=== PATIENT | female | born 1985 | race Caucasian/White ===

== ENCOUNTER 2022-08-13 07:50 | Outpatient (CLI) | payer BC | END 2022-08-13 07:51 | disposition home or self-care (01) | LOC: ULT 07:50 | PROVIDERS: ATTEND Registered Nurse Community Health | DX: E01.0 Iodine-deficiency related diffuse (endemic) goiter (principal) | CPT/HCPCS: 76536 ==

== ENCOUNTER 2023-08-25 08:12 | Inpatient (IN) | payer BC, OTHER ==
[2023-08-25] MEDS ORDERED: Iopamidol 370 76% 100 ML VIAL ONE (08:29)
[2023-08-25 08:52] LABS: #Eosinphils 0.1 thou/uL (0.0-0.7); #Monocytes 0.4 thou/uL (0.11-0.59); #Neutrophils 3.5 thou/uL (1.40-6.50); %Basophils 0.5 % (0.0-1.0); %Lymphocytes 31.3 % (21.0-51.0); %Monocytes 7.2 % (0.0-10.0); %Neutrophils 58.8 % (42.0-75.0); Hemoglobin 14.3 g/dL (12.0-16.0); Mean Corpuscular HGB CONC 32.5 g/dL (32.0-36.0); Mean Corpuscular Hemoglobin 28.3 pg (27.0-31.0); Mean Platelet Volume 9.2 fL (7.4-10.4); Platelet Count 311 10x3/uL (130-400); RBC Distribution Width 13.3 % (11.5-14.5); Red Blood Cell (RBC) Count 5.06 mill/uL (4.20-5.40)
[2023-08-25 08:57] LABS: Pregnancy Test - Urine (BHCG) Negative (Negative); Pregu Control Background? CLEAR/WHITE (CLR/WHITE); Pregu Control Bar Appear? YES (CONTROL BAR); Specific Gravity 1.028 (1.002-1.036)
[2023-08-25 09:07] LABS: Bacteria/HPF None Seen HPF (None Seen); Bilirubin Negative (Negative); Blood, Urine Negative (Negative); CAUTI Indications for Culture Pelvic or flank pain; Clarity Clear (Clear); Glucose, Urine (Dipstick) Normal (Negative); Ketone, Urine Negative (Negative); Leukocyte 25 Leu/uL (Negative); Nitrite Negative (Negative); Protein, Urine (Dipstick) 20 mg/dL (Neg-Trace); RBC/HPF 0-3 HPF (0-3); Specific Gravity, Urine 1.028 (1.002-1.036); Urobilinogen Normal mg/dL (Less than 2)
[2023-08-25 09:08] LABS: Urine Culture Reflex No No
[2023-08-25 09:17] LABS: ALT (SGPT) 10 U/L (8-55); AST (SGOT) 13 U/L (5-34); Albumin 4.3 g/dL (3.5-5.0); Alkaline Phosphatase 62 U/L (40-110); Anion Gap 13 mmol/L (10-20); BUN (Urea Nitrogen) 9 mg/dL (7.0-18.7); Bilirubin, Total 0.4 mg/dL (0.2-1.2); Calc. Creatinine Clearance 0 mL/min (70-130); Calcium 9.3 mg/dL (7.8-10.44); Carbon Dioxide 22 mmol/L (22-29); Chloride 107 mmol/L (98-107); Estimated GFR 72; Globulin 2.8 g/dL (2.4-3.5); Glucose 88 mg/dL (70-105); Lipase 57 U/L (8-78); Potassium 3.9 mmol/L (3.5-5.1); Protein, Total 7.1 g/dL (6.0-8.3); Sodium 138 mmol/L (136-145)
[2023-08-25] MEDS ORDERED: Ketorolac Tromethamine 30 MG (1 mL) VIAL ONE (09:36)
[2023-08-25] MEDS ORDERED: Ondansetron PF 4 MG/2 ML Vial ONE (09:36)
[2023-08-25] MEDS ORDERED: Piperacillin/Tazobactam 4.5 GM VIAL ONE (10:27)
[2023-08-25] MEDS ORDERED: Morphine 4 MG/ML VIAL ONE ×2 (10:27→12:52)
[2023-08-25] MEDS ORDERED: Sodium Chloride 0.9% 100 ML ONE (10:27)
[2023-08-25] MEDS ORDERED: Calcium Carbonate 500 MG ChewTAB PO PRN (13:06)
[2023-08-25] MEDS ORDERED: Senokot S 8.6-50 MG TAB PO PRN (13:06)
[2023-08-25] MEDS ORDERED: Bisacodyl 5 MG TAB PO PRN (13:06)
[2023-08-25] MEDS ORDERED: Ondansetron PF 4 MG/2 ML Vial IVP PRN (13:06)
[2023-08-25] MEDS ORDERED: Zolpidem Tartrate 5 MG TAB PO PRN (13:06)
[2023-08-25] MEDS ORDERED: Morphine 2 MG/ML VIAL SLOW IVP PRN (13:09)
[2023-08-25] MEDS ORDERED: Morphine 4 MG/ML VIAL SLOW IVP PRN (13:09)
[2023-08-25] MEDS: Sodium Chloride 0.9% 1,000 ML IV SCH ×2 (15:15→21:56)
[2023-08-25 15:46] VITALS: BMI 28.0
[2023-08-25] MEDS ORDERED: Hyoscyamine SL 0.125 MG TAB SL SCH ×2 (16:45→17:15)
[2023-08-25] MEDS ORDERED: Hyoscyamine SL 0.125 MG TAB SL PRN (17:02)
[2023-08-25] MEDS: Famotidine/PF 20 mg/2ml Vial SLOW IVP SCH (21:55)
[2023-08-26 04:57] LABS: #Eosinphils 0.2 thou/uL (0.0-0.7); #Monocytes 0.5 thou/uL (0.11-0.59); #Neutrophils 3.4 thou/uL (1.40-6.50); %Basophils 0.4 % (0.0-1.0); %Eosinophils 2.7 % (0.0-10.0); %Lymphocytes 38.7 % (21.0-51.0); %Neutrophils 50.9 % (42.0-75.0); Hematocrit 37.1 % (36.0-47.0); Hemoglobin 11.9 g/dL (12.0-16.0); Mean Corpuscular HGB CONC 32.1 g/dL (32.0-36.0); Mean Corpuscular Hemoglobin 28.1 pg (27.0-31.0); Mean Corpuscular Volume 87.7 fl (78.0-98.0); Mean Platelet Volume 9.7 fL (7.4-10.4); Platelet Count 265 10x3/uL (130-400); RBC Distribution Width 13.3 % (11.5-14.5); Red Blood Cell (RBC) Count 4.23 mill/uL (4.20-5.40); White Blood Cell (WBC) Count 6.7 10x3/uL (4.8-10.8)
[2023-08-26 05:31] LABS: ALT (SGPT) 8 U/L (8-55); AST (SGOT) 10 U/L (5-34); Albumin 3.4 g/dL (3.5-5.0); Alkaline Phosphatase 47 U/L (40-110); Anion Gap 9 mmol/L (10-20); BUN (Urea Nitrogen) 9 mg/dL (7.0-18.7); Bilirubin, Total 0.3 mg/dL (0.2-1.2); Calc. Creatinine Clearance 107 mL/min (70-130); Calcium 8.3 mg/dL (7.8-10.44); Carbon Dioxide 24 mmol/L (22-29); Chloride 108 mmol/L (98-107); Estimated GFR 77; Globulin 2.1 g/dL (2.4-3.5); Glucose 94 mg/dL (70-105); Potassium 3.8 mmol/L (3.5-5.1); Protein, Total 5.5 g/dL (6.0-8.3); Sodium 137 mmol/L (136-145)
[2023-08-26] MEDS: Levothyroxine Sodium 112 MCG TAB PO SCH (06:20)
[2023-08-26] MEDS: Ketorolac Tromethamine 30 MG (1 mL) VIAL IVP PRN ×2 (09:46→21:33)
[2023-08-26] MEDS: Famotidine/PF 20 mg/2ml Vial SLOW IVP SCH ×2 (09:46→21:34)
[2023-08-26] MEDS ORDERED: Sincalide 5 MCG VIAL ONE (10:58)
[2023-08-26] MEDS ORDERED: Bacteriostatic Normal Saline 30 ML VIAL ONE (10:58)
[2023-08-26] MEDS ORDERED: Sterile Water 10 ML ONE (10:58)
[2023-08-26] MEDS: Sodium Chloride 0.9% 1,000 ML IV SCH ×2 (13:43→21:34)
[2023-08-27] MEDS: Levothyroxine Sodium 112 MCG TAB PO SCH (05:44)
[2023-08-27] MEDS ORDERED: Rocuronium Bromide 10 MG/ML (10ML VIAL) ONE (06:50)
[2023-08-27] MEDS ORDERED: PHENYLEPHRINE-NS 100 MCG/ML 10 ML SYRINGE ONE (06:50)
[2023-08-27] MEDS ORDERED: fentaNYL PF 100 MCG/2 ML SYRINGE ONE (06:50)
[2023-08-27] MEDS ORDERED: Lidocaine 2% PF 5 ML VIAL ONE (06:50)
[2023-08-27] MEDS ORDERED: ePHEDrine Sulfate 50 MG/10 ML VIAL ONE (06:50)
[2023-08-27] MEDS ORDERED: PROPOFOL 20 ML ONE (06:50)
[2023-08-27] MEDS ORDERED: Bupivacaine 0.25% HCL 30 ML VIAL ONE (07:55)
[2023-08-27] MEDS ORDERED: EPINEPHrine 1 MG/ML VIAL ONE (07:55)
[2023-08-27] MEDS ORDERED: CEFAZOLIN 2 GM VIAL ONE (08:04)
[2023-08-27] MEDS ORDERED: Sodium Chloride 0.9% 100 ML ONE (08:04)
[2023-08-27] MEDS ORDERED: SUGAMMADEX SODIUM 200 MG/2 ML VIAL ONE (08:50)
[2023-08-27] MEDS ORDERED: Dexamethasone 20 MG/5 ML VIAL ONE (08:56)
[2023-08-27] MEDS ORDERED: fentaNYL 50 mcg/mL 1 mL Vial ONE (09:04)
[2023-08-27] MEDS ORDERED: Ondansetron PF 4 MG/2 ML Vial ONE (09:34)
[2023-08-27] MEDS ORDERED: Fentanyl 250 MCG/5 ML VIAL ONE (09:34)
[2023-08-27] MEDS ORDERED: HYDROmorphone 0.5 MG/0.5 ML SYRINGE ONE ×3 (09:49→10:31)
[2023-08-27] MEDS ORDERED: Acetaminophen/Codeine 30-300mg Tablet PO PRN (10:00)
[2023-08-27] MEDS ORDERED: Non-Formulary Medication 1 EACH PO PRN (10:22)
[2023-08-27] MEDS ORDERED: Ondansetron HCl/PF 4 MG/2 ML Vial IVP PRN (10:30)
[2023-08-27] MEDS ORDERED: HYDROmorphone 2 MG/ML VIAL SLOW IVP PRN (10:30)
[2023-08-27] MEDS ORDERED: Promethazine HCl 25 MG/ML VIAL IM PRN (10:30)
[2023-08-27] MEDS: Famotidine/PF 20 mg/2ml Vial SLOW IVP SCH (11:42)
[2023-08-27 12:19] VITALS: BP 118/82; TEMP 97.5
== END 2023-08-27 16:15 | disposition home or self-care (01) | DRG 419 ==
LOC: ERS 08:12 → SURG A 12:17 → OBSVTOIN 08-26 15:04
PROVIDERS: ADMIT Internal Medicine; ATTEND Family Medicine
PROC: 0FT44ZZ Resection of Gallbladder, Percutaneous Endoscopic Approach (ICD-10-PCS; principal; 2023-08-27)
PROC: 3E033XZ Introduction of Vasopressor into Peripheral Vein, Percutaneous Approach (ICD-10-PCS; 2023-08-27)
DX: K82.8 Other specified diseases of gallbladder (principal); E03.9 Hypothyroidism, unspecified; N20.0 Calculus of kidney; N83.201 Unspecified ovarian cyst, right side; F41.9 Anxiety disorder, unspecified; Z90.89 Acquired absence of other organs; K66.0 Peritoneal adhesions (postprocedural) (postinfection)
CPT/HCPCS: 36415; 71045; 74177; 76705; 78227; 80053; 81001; 81025; 83690; 85025; 96365; 96366; 96375; 96376; A9537; C1889; G0378; J0171; J0665; J1100; J1170; J1885; J2001; J2270; J2405; J2543; J2704; J2805; J3010; J3490; J7050; Q9967; S0028